=== PATIENT | male | born 1990 | race African-American/Black ===

== ENCOUNTER 2017-02-01 14:22 | Emergency (ER) | payer OTHER ==
[~2017-02-01 14:22] MED LIST: IBUPROFEN PO; KEFLEX PO; TRILEPTAL PO; VICODIN 5/500 T1 TAB PO; ZOFRAN ODT4 MG PO
== END 2017-02-01 14:57 | disposition home or self-care (01) ==
LOC: CED 14:22
DX: G40.909 Epilepsy, unspecified, not intractable, without status epilepticus (principal); Z91.040 Latex allergy status
CPT/HCPCS: 99284

== ENCOUNTER 2017-02-19 23:17 | Emergency (ER) | payer OTHER ==
--- NOTE | ~2017-02-19 | CR58 ---
[facility] A Service of [facility] & [facility] RADIOLOGY TEXT RESULTS PATIENT: CAROLYN NEW LOCATION: [facility] : 90 UNIT #: [id number] AGE: [address]: Marilee Yan APRN SEX: M ORDER DR: [id number] [facility] [address] [facility]. [place], [place] [address] [id number] E MR#: [id number] Acc #: [id number] NAME: CAROLYN NEW : 1990 SEX: M STUDY DATE/TIME: 02/20/2017 1:29 UNIT: [facility] ROOM: STUDY DESCRIPTION: CR Cervical Spine 2 or 3 Views Attending Physician: Marilee Yan A.P.R.N. Ordering Physician: Marilee Yan A.P.R.N. Primary Care Physician: No Primary Care Physician MEDICAL IMAGING REPORT This report is preliminary unless electronic signature is present EXAM Cervical spine INDICATIONS Neck pain and status post seizure. FINDINGS 4 views of the cervical spine without comparison. There is no acute fracture or subluxation. Vertebral body height and alignment is within normal limits. Prevertebral soft tissues are normal. IMPRESSION No acute findings. Dictated by... Jonn Valdes M.D. THIS IS AN ELECTRONICALLY VERIFIED REPORT Jonn Valdes M.D. at 02/21/2017 12:02 AM HIGINIO/margot TD: 02/20/2017 03:25 JOB #: [id number] MEDICAL IMAGING REPORT Page 1 of 1 COPY
--- NOTE | ~2017-02-19 | CR243 ---
[facility] A Service of [facility] & [facility] RADIOLOGY TEXT RESULTS PATIENT: CAROLYN NEW LOCATION: [facility] : 90 UNIT #: [id number] AGE: [address]: Marilee Yan APRN SEX: M ORDER DR: [id number] [facility] [address] [place], [place] [address] [id number] E MR#: [id number] Acc #: [id number] NAME: CAROLYN NEW : 1990 SEX: M STUDY DATE/TIME: 02/20/2017 1:34 UNIT: [facility] ROOM: STUDY DESCRIPTION: CR Thoracic Spine 3 Views Attending Physician: Marilee Yan A.P.R.N. Ordering Physician: Marilee Yan A.P.R.N. Primary Care Physician: No Primary Care Physician MEDICAL IMAGING REPORT This report is preliminary unless electronic signature is present EXAM Thoracic spine INDICATIONS Mid-back pain. Seizure. FINDINGS 3 views of the thoracic spine without comparison. There is no acute fracture or subluxation. Vertebral body height and alignment is normal. IMPRESSION Negative thoracic spine radiographs. Dictated by... Jonn Valdes M.D. THIS IS AN ELECTRONICALLY VERIFIED REPORT Jonn Valdes M.D. at 02/21/2017 12:02 AM HIGINIO/margot TD: 02/20/2017 03:24 JOB #: [id number] MEDICAL IMAGING REPORT Page 1 of 1 COPY
--- NOTE | ~2017-02-19 | CR173 ---
[facility] A Service of [facility] & [facility] RADIOLOGY TEXT RESULTS PATIENT: CAROLYN NEW LOCATION: [facility] : 90 UNIT #: [id number] AGE: [address]: Marilee Yan APRN SEX: M ORDER DR: [id number] [id number] [place], [place] [address] [id number] E MR#: [id number] Acc #: [id number] NAME: CAROLYN NEW : 1990 SEX: M STUDY DATE/TIME: 02/20/2017 1:43 UNIT: [facility] ROOM: STUDY DESCRIPTION: CR Knee 3 Views Rt Attending Physician: Marilee Yan A.P.R.N. Ordering Physician: Marilee Yan A.P.R.N. Primary Care Physician: No Primary Care Physician MEDICAL IMAGING REPORT This report is preliminary unless electronic signature is present EXAM Right knee INDICATIONS Trauma. Seizure. Right knee pain. FINDINGS 3 views of the right knee without comparison. No fracture, dislocation or effusion. IMPRESSION Negative right knee Dictated by... Jonn Valdes M.D. THIS IS AN ELECTRONICALLY VERIFIED REPORT Jonn Valdes M.D. at 02/21/2017 12:02 AM HIGINIO/margot TD: 02/20/2017 03:26 JOB #: [id number] MEDICAL IMAGING REPORT Page 1 of 1 COPY
--- NOTE | ~2017-02-19 | CR181 ---
[facility] A Service of [facility] & [facility] RADIOLOGY TEXT RESULTS PATIENT: CAROLYN NEW LOCATION: [facility] : 90 UNIT #: [id number] AGE: [address]: Marilee Yan APRN SEX: M ORDER DR: [id number] [facility] [address] [facility]. [place], [place] [address] [id number] E MR#: [id number] Acc #: [id number] NAME: CAROLYN NEW : 1990 SEX: M STUDY DATE/TIME: 02/20/2017 1:40 UNIT: [facility] ROOM: STUDY DESCRIPTION: CR Lumbar Spine 2 or 3 Views Attending Physician: Marilee Yan A.P.R.N. Ordering Physician: Marilee Yan A.P.R.N. Primary Care Physician: No Primary Care Physician MEDICAL IMAGING REPORT This report is preliminary unless electronic signature is present EXAM Lumbar spine INDICATIONS Low back pain for 1 day. FINDINGS 3 views of the lumbar spine without comparison. There is no acute fracture or subluxation. Vertebral body height and alignment is normal. Sacroiliac joints are normal. IMPRESSION No acute findings. Dictated by... Jonn Valdes M.D. THIS IS AN ELECTRONICALLY VERIFIED REPORT Jonn Valdes M.D. at 02/21/2017 12:02 AM HIGINIO/margot TD: 02/20/2017 03:22 JOB #: [id number] MEDICAL IMAGING REPORT Page 1 of 1 COPY
--- NOTE | ~2017-02-19 | CT71 ---
[facility] A Service of [facility] RADIOLOGY TEXT RESULTS PATIENT: CAROLYN NEW LOCATION: [facility] : 90 UNIT #: [id number] AGE: [address]: Marilee Yan APRN SEX: M ORDER DR: [id number] [facility]. [place], [place] [address] [id number] E MR#: [id number] Acc #: [id number] NAME: CAROLYN NEW : 1990 SEX: M STUDY DATE/TIME: 02/20/2017 1:11 UNIT: [facility] ROOM: STUDY DESCRIPTION: CT Head Wo Contrast Attending Physician: Marilee Yan A.P.R.N. Ordering Physician: Mairlee Yan A.P.R.N. Primary Care Physician: No Primary Care Physician MEDICAL IMAGING REPORT This report is preliminary unless electronic signature is present EXAM CT head INDICATIONS Seizure. Fall down steps. Frontal headache. TECHNIQUE CT of the head without contrast. This CT exam was performed with one or more of the following radiation dose reduction techniques: automatic control, adjustment of mA and/or kV according to patient size, and iterative reconstruction. COMPARISON CT head dated 03/11/2016. FINDINGS There is no acute intracranial hemorrhage, mass lesion, or acute infarct. An area of encephalomalacia in the right frontal parietal region is unchanged from the prior exam. The ventricles and basilar cisterns are normal in size and configuration. No extraaxial collections. No acute osseous abnormalities. IMPRESSION 1. No acute intracranial findings. 2. Moderate sized area of encephalomalacia in the right frontal and parietal region is unchanged from the prior exam. 3. Diffuse mucosal thickening throughout the ethmoid air cells with more mild thickening in the maxillary sinuses is unchanged. Dictated by... Jonn Valdes M.D. [facility] A Service of [facility] RADIOLOGY TEXT RESULTS PATIENT: CAROLYN NEW LOCATION: [facility] : 90 UNIT #: [id number] AGE: [address]: Marilee Yan APRN SEX: M ORDER DR: THIS IS AN ELECTRONICALLY VERIFIED REPORT Jonn Valdes M.D. at 02/20/2017 10:37 PM RPC/margot TD: 02/20/2017 03:12 JOB #: [id number] MEDICAL IMAGING REPORT Page 1 of 1 COPY
[2017-02-19] MEDS ORDERED: KEFLEX500 MG PO (23:33)
[2017-02-19] MEDS ORDERED: OXCARBAZEPINE600 MG PO (23:34)
[2017-02-20 00:59] LABS: BASOPHIL% 0.6 % (0-2.5); EOSINOPHIL# 0.3 X10e3 (0-0.7); EOSINOPHIL% 4.4 % (0.0-7.0); HEMATOCRIT 46.8 % (38.0-50.0); HEMOGLOBIN 15.4 gm/dL (13.0-16.0); LYMPHOCYTE# 2.1 X10e3 (1.0-3.5); MEAN CELL VOLUME 89.1 FL (83-96); MEAN CORPUSCULAR HEMOGLOBIN 29.3 PG (28-34); MEAN CORPUSCULAR HGB CONC 32.9 g/dL (30-36); MEAN PLATELET VOLUME 8.9 FL (6.5-11.5); MONOCYTE# 0.6 X10e3 (0-1.0); MONOCYTE% 8.5 % (3.0-12.0); NEUTROPHIL# 4.2 X10e3 (1.5-7.1); NEUTROPHIL% 57.5 % (40-75); PLATELET COUNT 201 X10e3 (140-420); RED BLOOD COUNT 5.25 X10e (3.90-5.60); RED CELL DISTRIBUTION WIDTH 13.3 % (11.0-15.5); WHITE BLOOD COUNT 7.4 X10e3 (4.0-10.5)
[2017-02-20 01:01] LABS: DIFF IND NO
[2017-02-20 01:20] LABS: ALBUMIN SERUM 4.5 g/dL (3.5-5.0); ALKALINE PHOSPHATASE 49 U/L (32-92); ALT (SGPT) 17 U/L (10-40); AST (SGOT) 16 U/L (10-42); BILIRUBIN, DIRECT 0.1 mg/dL (0.0-0.2); BILIRUBIN,INDIRECT 0.6 mg/dL (0.0-0.9); BILIRUBIN,TOTAL 0.7 mg/dL (0.2-2.0); BLOOD UREA NITROGEN 11 mg/dL (9-23); BUN/CREATININE RATIO 13.75; CARBON DIOXIDE 26 mmol/L (22-31); CHLORIDE 106 mmol/L (100-111); CREATININE SERUM 0.8 mg/dL (0.6-1.4); GLUCOSE FASTING 90 mg/dL (70-110); POTASSIUM 3.2 mmol/L (3.5-5.1); PROTEIN TOTAL SERUM 7.3 g/dL (6.0-8.3); SODIUM 139 mmol/L (135-145)
[2017-02-20 01:26] LABS: ALCOHOL BLOOD <5 mg/dL (0)
[2017-02-20 02:28] LABS: URINE SOURCE CLEAN CATCH
[2017-02-20 02:38] LABS: URINE APPEARANCE CLEAR; URINE BILIRUBIN NEG (NEG); URINE BLOOD NEG (NEG); URINE COLOR DK YELLOW; URINE GLUCOSE NEG (NEG); URINE KETONE TRACE (NEG); URINE LEUKOCYTE ESTERASE NEG (NEG); URINE NITRATE NEG (NEG); URINE PROTEIN 1+ (NEG); URINE SPECIFIC GRAVITY 1.038 (1.003-1.035)
[2017-02-20 02:41] LABS: URBCS1 AUWI 0-2 /[HPF] (0-2); URINE BACTERIA AUWI NEG (NEGATIVE); URINE SQUAMOUS EPITHELIAL CELL NONE SEEN /[HPF]
[2017-02-20 02:45] LABS: CULTURE INDICATED? NO
[2017-02-20 02:51] LABS: AMPHETAMINE NEG (NEG); BARBITURATES NEG (NEG); BENZODIAZEPINES NEG (NEG); COCAINE NEG (NEG); MARIJUANA POS (NEG); OPIATES NEG (NEG); TRICYCLIC ANTIDEPRESSANTS NEG (NEG); U METHADONE NEG (NEG)
== END 2017-02-20 03:19 | disposition home or self-care (01) ==
LOC: CED 23:17
PROVIDERS: Nurse Practitioner
DX: G40.909 Epilepsy, unspecified, not intractable, without status epilepticus (principal); S39.012A Strain of muscle, fascia and tendon of lower back, initial encounter; Z79.899 Other long term (current) drug therapy; Z91.040 Latex allergy status; W10.9XXA Fall (on) (from) unspecified stairs and steps, initial encounter
CPT/HCPCS: 36415; 70450; 72040; 72072; 72100; 73562; 80048; 80076; 80307; 81003; 82947; 85025; 99284; G0480

== ENCOUNTER 2017-03-01 11:45 | Emergency (ER) | payer OTHER ==
--- NOTE | ~2017-03-01 | CT52 ---
[facility] A Service [facility] RADIOLOGY TEXT RESULTS PATIENT: CAROLYN NEW LOCATION: [facility] : 90 UNIT #: [id number] AGE: [address]: Yung Davidson MD SEX: M ORDER DR: [id number] [address] [address] [id number] E MR#: [id number] Acc #: [id number] NAME: CAROLYN NEW : 1990 SEX: M STUDY DATE/TIME: 03/01/2017 13:45 UNIT: [facility] ROOM: STUDY DESCRIPTION: CT Cervical Spine Wo Cont Attending Physician: Yung Davidson M.D. Ordering Physician: Yung Davidson M.D. Primary Care Physician: Generic Doctor Not In System MEDICAL IMAGING REPORT This report is preliminary unless electronic signature is present EXAM CT cervical spine INDICATIONS Seizure for 1 day. Right side neck pain. Trauma. TECHNIQUE CT of the cervical spine without contrast. Coronal and sagittal reconstructions were obtained. This CT exam was performed with one or more of the following radiation dose reduction techniques: automatic exposure control, adjustment of mA and/or kV according to patient size, and iterative reconstruction. COMPARISON Cervical spine radiographs, dated 02/20/2017; CT cervical spine, dated 08/05/2015. FINDINGS There is no acute fracture or subluxation. Vertebral body height and alignment within normal limits. The craniocervical junction outline and facet articulations are within normal limits. Prevertebral soft tissues are within normal limits. Intervertebral disc spaces are well maintained. No significant central canal stenosis. IMPRESSION 1. No acute findings in the cervical spine. Dictated by... Jonn Valdes M.D. [facility] A Service [facility] RADIOLOGY TEXT RESULTS PATIENT: CAROLYN NEW LOCATION: [facility] : 90 UNIT #: [id number] AGE: [address]: Yung Davidson MD SEX: M ORDER DR: THIS IS AN ELECTRONICALLY VERIFIED REPORT Jonn Valdes M.D. at 03/02/2017 7:33 AM HIGINIO/fermin TD: 03/01/2017 18:12 JOB #: [id number] MEDICAL IMAGING REPORT Page 1 of 1 COPY
[~2017-03-01 11:45] MED LIST changes: +KEFLEX500 MG PO; +OXCARBAZEPINE600 MG PO
== END 2017-03-01 15:43 | disposition home or self-care (01) ==
LOC: CED 11:45
DX: G40.409 Other generalized epilepsy and epileptic syndromes, not intractable, without status epilepticus (principal); F17.200 Nicotine dependence, unspecified, uncomplicated
CPT/HCPCS: 72125; 99284